=== PATIENT | male | born 1950 | race Caucasian/White ===

== ENCOUNTER 2022-11-08 00:11 | Emergency (ER) | payer OTHER ==
[~2022-11-08] VITALS: Ht 182.9 cm; Wt 103.0 kg
[2022-11-08 00:31] VITALS: BP_SYST 130
--- NOTE | 2022-11-08 00:35 | NUR ---
Patient triaged and placed in waiting room. VSS and patient appears in no acute distress at this time. Accompanied by partner, awaiting available bed, and MD notified of need for MSE.
--- NOTE | 2022-11-08 01:16 | NUR ---
Blood sugar 160. MADE AWARE.
[2022-11-08 02:24] LABS: BASOPHILS % (AUTO) 0.4 % (0.0-2.0); EOSINOPHILS # (AUTO) 0.1 K/uL (0.0-0.4); EOSINOPHILS % (AUTO) 0.7 % (0.0-4.0); HEMATOCRIT 36.8 % (36-54); HEMOGLOBIN 12.5 g/dL (14.0-18.0); LYMPHOCYTES # (AUTO) 0.4 K/uL (1.0-5.5); LYMPHOCYTES % (AUTO) 4.7 % (20.5-51.5); MEAN CORPUSCULAR HEMOGLOBIN 31 pg (27-31); MEAN CORPUSCULAR HGB CONC 34 % (32-36); MEAN CORPUSCULAR VOLUME 92 fL (79.0-98.0); MONOCYTES # (AUTO) 0.3 K/uL (0.0-1.0); MONOCYTES % (AUTO) 4.3 % (1.7-9.3); NEUTROPHILS % (AUTO) 89.9 % (40.0-70.0); PLATELET COUNT (AUTO) 204 K/uL (130-430); RED CELL DISTRIBUTION WIDTH 14.1 % (9.0-15.0); WHITE BLOOD COUNT (AUTO) 7.8 K/uL (4.8-10.8)
[2022-11-08 02:34] LABS: CALCIUM 9.4 mg/dL (8.4-11.0); CREATININE 1.55 mg/dL (0.55-1.30)
[2022-11-08 02:40] LABS: ALBUMIN 3.8 g/dL (3.4-4.8); TOTAL BILIRUBIN 1.3 mg/dL (0.0-1.0)
--- NOTE | 2022-11-08 03:54 | NUR ---
PATIENT TO ROOM #7, ASSISTED INTO GOWN AND PLACED ON MONITOR, INFORMED OF PLAN OF CARE AT THIS TIME. NO S/S OF ANY DISTRESS NOTED, ABD SOFT NON TENDER TO PALPATION NO S/S OF EDEMA. AND CURRENTLY WITHOUT CHILLS. SIDE RAILS UP, WILL CONTINUE TO MONITOR. LAB WAS COLLECTED, AWAITING RESULTS.
--- NOTE | 2022-11-08 05:01 | NUR ---
CONTINUES TO REST WITHOUT ANY C/O AT THIS TIME.
[2022-11-08] MEDS ORDERED: PIPERACILLIN/TAZO 3.375 GM in NS 50 ML IV ONE (06:15)
[2022-11-08] MEDS ORDERED: PIPERACILLIN/TAZOBACTAM 3.375 GM/VIAL (ZOSYN) IV ONE (06:33)
--- NOTE | 2022-11-08 07:11 | NUR ---
0645 #20G ESTABLISHED IN LEFT AC AREA PATIENT INFORMED WILL BE GETTING MEDICATION. FAMILY MEMBER NOW AT BEDSIDE ALSO UPDATED.
--- NOTE | 2022-11-08 07:52 | NUR ---
RECEIVED PT FROM ISRAEL FRAGA. ASSUMED CARE.
[2022-11-08] MEDS ORDERED: IBUP-1969 PO (07:59)
--- NOTE | 2022-11-08 08:45 | NUR ---
DR. DENISE AT BEDSIDE TO DISCUSS POC.
[2022-11-08 08:52] VITALS: BP_SYST 135
--- NOTE | 2022-11-08 09:01 | NUR ---
Patient given written and verbal discharge instructions and verbalizes understanding. ER MD discussed with patient the results and treatment provided. Patient in stable condition. ID arm band removed. IV catheter removed intact and dressing applied, no active bleeding. Rx of IBUPROPHEN given. Patient educated on pain management and to follow up with PMD. Pain Scale 0/10. Opportunity for questions provided and answered. Medication side effect fact sheet provided.
== END 2022-11-08 09:01 | disposition home or self-care (01) ==
LOC: SED 00:11
DX: R68.89 Other general symptoms and signs (principal); I10 Essential (primary) hypertension; E11.9 Type 2 diabetes mellitus without complications; Z20.822 Contact with and (suspected) exposure to COVID-19
CPT/HCPCS: 99285; 74176; 96365; 71045; 87426; 80053; 82962; 85025; 87040; 36415; 76376; 81002; 83605; 87804 ×2; J2543